=== PATIENT | female | born 1960 | race Caucasian/White ===

== ENCOUNTER 2022-01-02 20:12 | Inpatient (IN) | payer BC, MEDICAID, SELFPAY ==
[2022-01-02] VITALS (11 sets, daily range): BP systolic 157–236; BP diastolic 72–105; PULSE 82–112; RESP 16–18; TEMP 35.7–36.6; O2SAT 100; BMI 29.9
--- NOTE | 2022-01-02 20:26 | EKG12_ITS ---
Test Reason : HTN Blood Pressure : / mmHG Vent. Rate : 092 BPM Atrial Rate : 092 BPM P-R Int : 130 ms QRS Dur : 082 ms QT Int : 390 ms P-R-T Axes : 074 073 063 degrees QTc Int : 482 ms Normal sinus rhythm Normal ECG Confirmed by RAH TOLEDO, ALEXI ([id number]), sound editor JOSE BLAKE ([id number]) on 01/07/2022 11:47:58 AM Referred By: Confirmed By:ALEXI MONREAL MD
--- NOTE | 2022-01-02 20:26 | CT_ITS ---
STUDY: CT BRAIN WITHOUT CONTRAST REASON FOR EXAM: Female, 61 years old. Hypertensive emergency TECHNIQUE: Transaxial CT imaging of the brain was performed without administration of intravenous contrast material. Individualized dose optimization techniques were used for this CT. COMPARISON: None FINDINGS: Normal calvarium. Normal soft tissues. Normal size ventricles and extra-axial spaces for the patient''s age. There are areas of decreased attenuation within the white matter tracts of the supratentorial brain, consistent with microvascular disease changes. Normal basal ganglia and thalami. Normal brainstem. Normal cerebellum. There is no intracranial hemorrhage. There are no findings of an acute ischemic infarction. Normal visualized paranasal sinuses. ASPECTS 10 CT/Brain/Head without Contrast IMPRESSION: There are no acute intracranial findings. Electronically Signed: Stalin Ball MD at 21:35 EST ,
--- NOTE | 2022-01-02 20:27 | EDS_ITS ---
HPI History of Present Illness Chief Complaint: Hypertension Detail of Chief Complaint: Swishing in her ears and high blood pressure Informant: patient Onset/Context/Timing Onset: Today (Today she had new batteries and blood pressure was elevated at 197 /110.) and Yesterday (Patient complained of swishing in ears yesterday. Her blood pressure machine was not functional.) Context: - (Unknown) Timing: - (Unknown) Quality: Elevated blood pressure Location: Cardiovascular Current Severity: Moderate Maximum Severity: Moderate Worsened by: Unknown Relieved by: Nothing Associated Symptoms Associated Symptoms: Vague sense of unwellness and left arm feels different Narrative Narrative: Patient is a 61-year-old woman with no sniffing a past medical history on no medication. She has been taking ibuprofen daily. She denies headache presently. She denies double vision, blurred vision loss vision. She states yesterday she had some trouble with her vision but could not specify what she was experiencing. She is presently complaining of a swishing sensation in her ears. Denies trouble speech or swallowing. She denies motor weakness upper or lower extremities. She denies problems with coordination or balance. She denies chest pain or back pain. Denies abdominal pain. She denies abdominal pain, nausea, vomiting or diarrhea. She denies dysuria, frequency, urgency or hematuria. Prior similar symptoms: No Recent Illness/Hospitalization: No PFSH PFSH Medical History no medical history no medical history Home Medications NK 01/02/22 [History Last Taken Unknown] Allergy/AdvReac Type Severity Reaction Status Date / Time acetaminophen [From Percocet] Allergy Nausea Verified 01/02/22 20:14 oxycodone [From Percocet] Allergy Nausea Verified 01/02/22 20:14 Social History (Updated 01/02/22 @ 20:[address] Marc Carreon MD) household members: none Smoking Status: Current every day smoker tobacco type: cigarettes alcohol intake: current alcohol intake frequency: holidays/special occasions only substance use type: does not use ROS ROS ED Constitutional Constitutional ED: Denies chills, fever(s), subjective, sweats or weight loss Eyes Eyes: Denies blurry vision, change in vision or diplopia ENT ENT ED: Denies ear pain, rhinorrhea or sore throat Cardiovascular Cardiovascular: Denies chest pain, orthopnea, palpitations or paroxysmal nocturnal dyspnea Respiratory/Chest Respiratory/Chest: Denies cough, dyspnea, dyspnea on exertion, orthopnea or paroxysmal nocturnal dyspnea Gastrointestinal Gastrointestinal: Denies abdominal pain, diarrhea, nausea or vomiting Genitourinary Genitourinary ED: Denies dysuria, hematuria or urinary frequency Musculoskeletal Musculoskeletal: Denies arthralgias, back pain, myalgias or neck pain Integumentary Denies abscess or Abrasions Neurologic Neurologic: Reports paresthesias LUE; Denies headache(s) or weakness Psychiatric Psychiatric: Denies anxiety or depression Endocrine Endocrinology: Denies cold intolerance or heat intolerance Hematologic/Lymphatic Hematologic/Lymphatic: Reports systems reviewed and no addt'l complaints, except as documented EXAM Physical Exam Const Vital Signs: 01/02/22 20:14 01/02/22 20:28 01/02/22 20:28 Temperature 96.3 F L Temperature Source Temporal Pulse Rate 112 H 91 Respiratory Rate 18 16 Respiratory Effort Normal Blood Pressure 236/97 H 224/88 H Blood Pressure Mean 143 133 Pulse Ox 100 Oxygen Delivery Method Room Air 01/02/22 21:01 01/02/22 21:12 01/02/22 21:50 Temperature Temperature Source Pulse Rate 82 93 Respiratory Rate 18 18 Respiratory Effort Blood Pressure 193/84 H 189/83 H 157/72 H Blood Pressure Mean 120 118 100 Pulse Ox Oxygen Delivery Method 01/02/22 21:55 Temperature Temperature Source Pulse Rate 89 Respiratory Rate 18 Respiratory Effort Blood Pressure 157/72 H Blood Pressure Mean 100 Pulse Ox Oxygen Delivery Method Positive well nourished and well developed General Appearance ED: well developed and NAD; Negative for cyanotic, diaphoretic or pallor HEENT HEENT Narrative: Head is atraumatic normocephalic. Ears normal. Nares patent. Uvula midline. No deviation of her protrusion. No erythema exudate the posterior pharynx. Eyes PERRL and EOMs intact bilaterally Eyes Narrative: There is no nystagmus. There is no APD. Unable to see fundi. General Eye ED: Negative for pale conjunctiva or scleral icterus Neck no lymphadenopathy, supple and no JVD Chest Wall inspection of chest normal and palpation of chest normal Resp normal respiratory effort and clear to auscultation bilaterally Cardio regular rhythm, S1 normal heart sound, S2 normal heart sound and no murmurs Rate: tachycardic GI normal to inspection, nondistended, normoactive bowel sounds, non-tender, non- distended and no masses; Negative for hepatosplenomegaly Back/Spine no CVA tenderness Extremity normal to inspection General Extremety ED: Negative for edema, tenderness or other findings General Extremity: Negative for edema or other findings Neuro oriented x3, CN's II-XII intact bilaterally and No no sensory deficits noted Neuro Narrative: Ultrasound patient left upper EXTR. DTR symmetric upper lower extremity with no clonus or Babinski sign. Sensorium / Orientation: alert Motor Exam: strength 5/5 throughout Psych mental status grossly normal Skin no rashes or lesions noted, no wounds and skin turgor normal General Skin Exam: Negative for jaundice or pallor MDM MDM MDM Narrative Medical decision making narrative: With patient taking ibuprofen will obtain BMP to assess for renal function and electrolytes. CBC to rule out anemia. EKG to see if there is evidence of heart strain, LVH consistent with undiagnosed untreated hypertension. Since patient can planes of altered sensation left upper extremity has decreased sensation left upper extremity will start patient on Cardene drip and will obtain CT of the head to evaluate for intracranial bleed. Lab Data Attestation: I reviewed the patient's lab results. Lab results narrative: CBC is unremarkable. Basic metabolic panel reveals mild hyponatremia and hyper bow kalemia. BUN and creatinine are normal. UA is negative with no evidence of proteinuria or hematuria. Labs: Laboratory Results - last 24 hr 01/02/22 01/02/22 01/02/22 20:40 20:40 21:21 WBC 9.4 RBC 4.30 Hgb 13.5 Hct 40.1 MCV 93.3 MCH 31.4 MCHC 33.7 RDW Std Deviation 44.0 H RDW Coeff of Grecia 13.0 Plt Count 232 MPV 11.0 Immature Gran % (Auto) 0.400 Neut % (Auto) 57.3 Lymph % (Auto) 32.6 [place] % (Auto) 7.0 Eos % (Auto) 1.9 Baso % (Auto) 0.8 Absolute Neuts (auto) 5.4 Absolute Lymphs (auto) 3.07 Nucleated RBC % 0 Sodium 133 L Potassium 3.0 L Chloride 100 Carbon Dioxide 23.0 Anion Gap 10 BUN 10 Creatinine 0.73 Estim Creat Clear Calc 69.00 Est GFR (MDRD) Af Amer 104 Est GFR (MDRD) Non-Af 86 BUN/Creatinine Ratio 13.8 Glucose 94 Calcium 9.1 Urine Color Straw Urine Clarity Clear Urine pH 6.5 Ur Specific [place] 1.010 Urine Protein Negative Urine Glucose (UA) Normal Urine Ketones Negative Urine Occult Blood Negative Urine Nitrite Negative Urine Bilirubin Negative Urine Urobilinogen Normal Ur Leukocyte Esterase Negative Urine RBC 0 SEEN Urine WBC 0 SEEN Ur Squamous Epith Cells 0 SEEN Urine Bacteria 0 SEEN Urine Mucus 0 SEEN There is no evidence of endorgan dysfunction on laboratory tests. UA is pending. Radiography Diagnostic Testing: Clinical Impression(s) from Imaging Studies Brain CT 01/02/22 20:26 IMPRESSION: There are no acute intracranial findings. Electronically Signed: Stalin Ball MD at 21:35 EST , CT of the head was independently reviewed by me as negative for intracranial bleed or obvious stroke. Awaiting formal read by radiologist, [id number]. The x-ray was interpreted by radiologist and agrees there is no acute intracranial process EKG Initial EKG: Attestation: I personally reviewed and interpreted this EKG as follows: Interpretation: Sinus Rhythm (The EKG is normal. Rate is 92. PA interval is 130 ms. QRS duration 82 ms. QT duration 398 ms. Salol is normal.) Treatment and Re-Evaluation Narrative: Patient's had a reduction of her blood pressure from 2 36-1 89/83 on a Cardene drip. 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
[2022-01-02 20:46] LABS: Absolute Lymphocyte Count 3.07 X10^3/uL (0.83-4.51); Absolute Neutrophil Count 5.4 X10^3/uL (2.0-7.7); Basophil# 0.08 X10^3/uL; Basophil% 0.8 % (0-1); Eosinophil# 0.18 X10^3/uL; Eosinophils% 1.9 % (0-5); Hematocrit 40.1 % (37-47); Hemoglobin 13.5 g/dL (12.0-15.0); Lymphocyte # 3.07 X10^3/ul (0.83-4.51); Lymphocyte % 32.6 % (19-41); Mean Corp Hgb Conc 33.7 g/dL (32-36); Mean Corpuscular Hgb 31.4 pg (27.0-32.0); Mean Corpuscular Volume 93.3 fL (81-99); Monocyte# 0.66 X10^3/uL; NRBC Flagged by Analyzer 0 % (0-5); Neutrophil # 5.39 X10^3/uL (2.7-7.7); Neutrophil % 57.3 % (47-70); Platelet Count 232 K/mm3 (150-450); White Blood Count 9.4 K/mm3 (4.4-11.0)
[2022-01-02 20:59] LABS: Anion Gap 10 (5-15); BUN 10 mg/dL (7-18); BUN/Creat Ratio 13.8 RATIO (10-20); Calcium,Total 9.1 mg/dL (8.5-10.1); Chloride 100 mmol/L (98-107); Creatinine, Serum 0.73 mg/dL (0.55-1.02); EST Glomerular Filtration Rate 86 mL/min (>60); Est Glom Filt Rate - Afr Amer 104 mL/min (>60); Glucose 94 mg/dL (74-106); Sodium Level 133 mmol/L (136-145)
[2022-01-02 21:34] LABS: Bacteria 0 SEEN /hpf (None Seen); Mucous, Urine 0 SEEN /hpf (<or=2+); Red Blood Cells-Urine 0 SEEN /hpf (0-5); Squamous Epithelial Cells - UA 0 SEEN /hpf (5-10); White Blood Cells 0 SEEN /hpf (0-5)
[2022-01-02 21:39] LABS: Color, Urine Straw (Yellow); Glucose, Dipstick Normal (Normal); Ketone-Dipstick Negative (Negative); Leukocyte Esterase-Dipstick Negative /ul (Negative); Nitrite-Dipstick Negative (Negative); Occult Blood-Urine Negative /ul (Negative); Protein-Dipstick Negative (Negative); Urine Bilirubin Dipstick Negative (Negative); Urine Clarity Clear (Clear); Urine Urobilinogen Normal (Normal); Urine pH 6.5 (5.0 - 8.0)
--- NOTE | 2022-01-02 23:03 | HP.PCM.HOS_ITS ---
HPI - General General Date of Admission: 01/02/22 Date of Service: 01/02/22 Chief Complaint: elevated blood pressures HPI Narrative JOSE MANUEL CASTRO, is a 61 F with a significant history of hyperlipidemia; and bilateral breast cancer status post bilateral mastectomy who presents to the emergency department with elevated blood pressure. Patient reported that on a day before presentation she had a swishing sound in both ears. 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 She could not check her blood pressure at that time since the battery of a blood pressure machine had . On the day of presentation patient she had headache and generally felt unwell. She checked her blood pressure and it was 187/110. She drank some water hoping that it would bring her blood pressure down. However her blood pressure remained elevated. Patient had some blurry vision. At the emergency department she transiently had a tingling sensation of her left forearm. She reports that 1 time and with her blood pressure was elevated and remain elevated a few days afterwards. She denies a diagnosis of hypertension. [facility] Medical History Hyperlipidemia Medical History no medical history Home Medications NK 01/02/22 [History Last Taken Unknown] Allergy/AdvReac Type Severity Reaction Status Date / Time acetaminophen [From Percocet] Allergy Nausea Verified 01/02/22 20:14 oxycodone [From Percocet] Allergy Nausea Verified 01/02/22 20:14 Family History Mother Cancer Heart disease Brother Heart disease Other CVA (cerebral vascular accident) Surgical History H/O bilateral mastectomy History of hip replacement Social History (Updated 01/03/22 @ 02:[address] Jose Hong MD) household members: none Smoking Status: Current every day smoker tobacco type: cigarettes alcohol intake: current alcohol intake frequency: 3 or more drinks per day substance use type: does not use ROS ROS Narrative Pertinent positives and pertinent negatives as noted in HPI. All other systems were reviewed and are negative Vital Signs Vital Signs Vital Signs: 01/02/22 20:14 01/02/22 20:28 01/02/22 20:28 Temperature 96.3 F L Temperature Source Temporal Pulse Rate 112 H 91 Respiratory Rate 18 16 Respiratory Effort Normal Blood Pressure 236/97 H 224/88 H Blood Pressure Mean 143 133 Pulse Ox 100 Oxygen Delivery Method Room Air 01/02/22 21:01 01/02/22 21:12 01/02/22 21:50 Temperature Temperature Source Pulse Rate 82 93 Respiratory Rate 18 18 Respiratory Effort Blood Pressure 193/84 H 189/83 H 157/72 H Blood Pressure Mean 120 118 100 Pulse Ox Oxygen Delivery Method 01/02/22 21:55 Temperature Temperature Source Pulse Rate 89 Respiratory Rate 18 Respiratory Effort Blood Pressure 157/72 H Blood Pressure Mean 100 Pulse Ox Oxygen Delivery Method Weight Weight: 79.379 kg Body Mass Index (BMI) 30.0 Physical Exam Narrative Physical exam: General: Well-nourished, well-developed. Head: Normocephalic, atraumatic, no tenderness Eyes: Vision is grossly intact. EOMI ENT, no trauma, moist mucous membranes, no rhinorrhea Neck: Nontender, full range of motion, no spinal tenderness, deformities, step- off CVS: Regular rate and rhythm. S1-S2 present. No murmur, gallop or rub. Respiratory : clear to auscultation bilaterally, chest wall nontender, no wheezing Abdomen: Soft, nontender, nondistended, normal bowel sounds, no masses : Deferred Back: Nontender, no CVA tenderness, no midline spinal tenderness, deformities, step-offs Extremities: Nontender full range of motion, no trauma Skin: Normal color, no trauma, abrasions Neuro: Alert, oriented, cranial nerves II through XII grossly intact. Psychiatry: Normal mood. Normal affect. Not depressed. Not anxious. Results Lab / Micro Data Result Diagrams: 01/02/22 20:40 01/02/22 20:40 Labs: Laboratory Results - last 24 hr 01/02/22 20:40: WBC 9.4, RBC 4.30, Hgb 13.5, Hct 40.1, MCV 93.3, MCH 31.4, MCHC 33.7, RDW Std Deviation 44.0 H, RDW Coeff of Grecia 13.0, Plt Count 232, MPV 11.0, Immature Gran % (Auto) 0.400, Neut % (Auto) 57.3, Lymph % (Auto) 32.6, [place] % ( Auto) 7.0, Eos % (Auto) 1.9, Baso % (Auto) 0.8, Absolute Neuts (auto) 5.4, Absolute Lymphs (auto) 3.07, Nucleated RBC % 0 01/02/22 20:40: Sodium 133 L, Potassium 3.0 L, Chloride 100, Carbon Dioxide 23.0, Anion Gap 10, BUN 10, Creatinine 0.73, Estim Creat Clear Calc 69.00, Est GFR (MDRD) Af Amer 104, Est GFR (MDRD) Non-Af 86, BUN/Creatinine Ratio 13.8, Glucose 94, Calcium 9.1 01/02/22 21:21: Urine Color Straw, Urine Clarity Clear, Urine pH 6.5, Ur Specific [place] 1.010, Urine Protein Negative, Urine Glucose (UA) Normal, Urine Ketones Negative, Urine Occult Blood Negative, Urine Nitrite Negative, Urine Bilirubin Negative, Urine Urobilinogen Normal, Ur Leukocyte Esterase Negative, Urine RBC 0 SEEN, Urine WBC 0 SEEN, Ur Squamous Epith Cells 0 SEEN, Urine Bacteria 0 SEEN, Urine Mucus 0 SEEN Radiology Impression Brain CT 01/02/22 20:26 IMPRESSION: There are no acute intracranial findings. Electronically Signed: Stalin Ball MD at 21:35 EST Reading Location ID and State: [facility] / [place] , Service support , Assessment & Plan Assessment/Plan (1) Hypertensive emergency: (2) Arm paresthesia, left: (3) Alcoholism: (4) Tobacco abuse: PLAN: Plan Hypertensive emergency Patient with headache and paresthesia. EKG was reviewed and independently interpreted. Sinus rhythm with no LVH. Urinalysis with no proteinuria. Cardene drip started at the emergency department and continued. Parameters for blood pressures placed. Admit the patient to intensive care unit. Showroom Sales Assistant consult. Paresthesia Likely secondary to hypertension. CT brain was visualized and independently interpreted. No bleed seen. MRI of brain/MRA head and neck ordered. Echocardiogram ordered. Tobacco abuse Counseled Alcoholism Counseled DVT prophylaxis Subcutaneous Lovenox ordered. Charges/Coding Visit Charges Inpatient E&M: 34234 Init Hosp L3
[2022-01-03] VITALS (23 sets, daily range): BP systolic 118–194; BP diastolic 57–93; PULSE 62–98; RESP 16–23; TEMP 36.6–36.7; O2SAT 92–98; BMI 29.9
[2022-01-03] MEDS: Potassium Chloride Oral Tablet 20 MEQ 40 MEQ PO (03:30)
[2022-01-03 06:06] LABS: Absolute Lymphocyte Count 2.35 X10^3/uL (0.83-4.51); Absolute Neutrophil Count 4.5 X10^3/uL (2.0-7.7); Basophil# 0.06 X10^3/uL; Basophil% 0.8 % (0-1); Eosinophil# 0.19 X10^3/uL; Eosinophils% 2.4 % (0-5); Hematocrit 42.5 % (37-47); Hemoglobin 14.4 g/dL (12.0-15.0); Lymphocyte # 2.35 X10^3/ul (0.83-4.51); Lymphocyte % 30.1 % (19-41); Mean Corp Hgb Conc 33.9 g/dL (32-36); Mean Corpuscular Hgb 31.6 pg (27.0-32.0); Mean Corpuscular Volume 93.2 fL (81-99); Mean Platelet Vol. 11.2 fl (6.2-12.0); Monocyte# 0.67 X10^3/uL; Monocyte% 8.6 % (0-10); NRBC Flagged by Analyzer 0 % (0-5); Neutrophil # 4.51 X10^3/uL (2.7-7.7); Neutrophil % 57.6 % (47-70); Platelet Count 258 K/mm3 (150-450); RBC Distribution Width CV 13.2 % (11.6-14.6); RBC Distribution Width SD 45.2 fl (35.1-43.9); Red Blood Count 4.56 M/mm3 (4.2-5.4); White Blood Count 7.8 K/mm3 (4.4-11.0)
[2022-01-03 06:35] LABS: Anion Gap 5 (5-15); BUN 9 mg/dL (7-18); BUN/Creat Ratio 13.3 RATIO (10-20); Calcium,Total 9.5 mg/dL (8.5-10.1); Chloride 107 mmol/L (98-107); Cholesterol 264 mg/dL (200); Creatinine, Serum 0.68 mg/dL (0.55-1.02); EST Glomerular Filtration Rate 94 mL/min (>60); Est Glom Filt Rate - Afr Amer 113 mL/min (>60); Estimated Creatinine Clearance 74.07 ml/min; Glucose 102 mg/dL (74-106); High Density Lipoprotein 67 mg/dL; Potassium 4.2 mmol/L (3.5-5.1); Sodium Level 139 mmol/L (136-145); Triglycerides 145 mg/dL; Very Low Density Lipoprotein 29 mg/dL (5-40)
--- NOTE | 2022-01-03 08:02 | EX.PCM.CONCC ---
Assessment & Plan Assessment/Plan (1) Hypertensive emergency: PLAN: Plan RECOMMENDATIONS: 1. Initiate beta-manuel 2. Okay to discontinue NIH assessments 3. Cancel MRI 4. Close outpatient follow-up with PCP 5. Consider outpatient complete PFT for evaluation of COPD 6. Okay to discharge from a critical care perspective. We will sign off IMPRESSIONS: 1. Hypertensive emergency Patient with blood pressures over 200 with concomitant neurologic findings. These findings were bilateral and resolved with normalization of blood pressure making acute CVA unlikely. Okay to discontinue NIH assessments from my perspective. Given concerns about earrings, MRI could be detrimental. We will initiate patient on a beta-manuel given history of headaches. Patient may benefit from addition of CARA inhibitor as an outpatient if LVH is noted on echocardiogram. Additional work-up is likely not necessary as an inpatient, but defer to hospitalist 2. Elevated cholesterol/nicotine abuse/overweight/poor insight/ingrown earrings/history of breast cancer Complicates care, management, recovery and prognosis. Did discuss with the patient about smoking cessation. Patient would likely benefit from an outpatient pulmonary function test for evaluation of COPD. Patient likely would benefit from a statin also given elevated cholesterol. HPI Consult Data Date of Consult: 01/03/22 HPI Narrative Reason for Consultation: Hypertensive emergency HPI Narrative: JOSE MANUEL CASTRO is a 61 F, with past medical history listed below, who presents to [facility] on 01/02/2022 secondary to concerns for high blood pressure and the sensation of swishing in her ears. Patient reportedly does follow with a primary care physician, but is not currently on any medications. Patient had some concerns of elevated blood pressure in the past, but was not started on any medication. Patient stated that she started to feel swishing in her ears and presented to the ER for further evaluation. Patient also reported that she started to have numbness and tingling of bilateral hands. Patient denied any concomitant chest pain, abdominal pain, nausea or vomiting. No syncopal event was noted. In the ER, patient was afebrile, but had blood pressure of 236/97. Patient was saturating well on room air. Patient was noted to have relatively normal chemistries except for a potassium of 3 and a sodium of 133. UA was unremarkable. CBC was within normal limits. CT of the head showed no acute intracranial findings and EKG confirmed sinus rhythm. Initial NIH was 1. Patient was not given tPA. Patient was placed on a nicardipine drip and admitted to the intensive care unit. Since being in the intensive care unit, patient was able to be weaned off the nicardipine quickly. Patient reportedly had never received any labetalol or hydralazine prior to the drip. Patient states her numbness and tingling has completely gone away. Patient is not reporting any swishing in her ears. Blood pressures have remained in the 150s. Patient does have a long smoking history, starting at age 12. Patient has never had a pulmonary function test to evaluate for COPD, but does have a cough productive of clear sputum on a daily basis. 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 Patient states that she typically runs in the 140s but my PCP seems okay with this. Patient is not reporting any illicit drugs. Patient has not had any recent trauma. Patient is not taking any [id number] medications outside of ibuprofen. Patient has not had previous symptoms like this. Nursing has reported that the patient has earrings that have grown over and are difficult to remove prior to MRI. Review of systems otherwise negative from a constitutional, HEENT, respiratory, cardiovascular, GI, genitourinary, musculoskeletal, skin, neurologic, psychiatric and hematologic system unless stated above. [facility] Medical History Hyperlipidemia Medical History no medical history Home Medications NK 01/02/22 [History Last Taken Unknown] Allergy/AdvReac Type Severity Reaction Status Date / Time acetaminophen [From Percocet] Allergy Nausea Verified 01/02/22 20:14 oxycodone [From Percocet] Allergy Nausea Verified 01/02/22 20:14 Family History Mother Cancer Heart disease Brother Heart disease Other CVA (cerebral vascular accident) Surgical History H/O bilateral mastectomy History of hip replacement Social History household members: none Smoking Status: Current every day smoker tobacco type: cigarettes alcohol intake: current alcohol intake frequency: 3 or more drinks per day substance use type: does not use ROS ROS Narrative See HPI Physical Exam Const alert, oriented x3 and no apparent distress Constitutional Narrative: Obese. General Appearance: cooperative and well developed HEENT normocephalic, head/scalp atraumatic and moist oral mucous membranes Eyes PERRL and EOMs intact bilaterally Neck full ROM, no lymphadenopathy and supple Chest Chest Narrative: Bilateral mastectomy scars Resp normal respiratory effort and no use of accessory muscles Effort and Inspection: able to speak in complete sentences Auscultation: clear to auscultation bilaterally; Negative for rales, rhonchi or wheezes Percussion: Negative for dullness Cardio regular rate, regular rhythm, S1 normal heart sound, S2 normal heart sound, no murmurs, no rub and no gallops GI normal to inspection, nondistended, normoactive bowel sounds no CVA tenderness Extremity no clubbing, cyanosis or edema Skin no rashes or lesions noted Neuro oriented x3, CN's II-XII intact bilaterally, moves all extremities and no focal motor deficits Neuro Narrative: Normal, symmetric fine touch sensation bilateral hands Psych cooperative and affect normal Lab / Micro Data Attestation: I reviewed the patient's lab results. Result Diagrams: 01/03/22 05:50 01/03/22 05:50 Labs: Laboratory Results - last 24 hr 01/02/22 20:40: WBC 9.4, RBC 4.30, Hgb 13.5, Hct 40.1, MCV 93.3, MCH 31.4, MCHC 33.7, RDW Std Deviation 44.0 H, RDW Coeff of Grecia 13.0, Plt Count 232, MPV 11.0, Immature Gran % (Auto) 0.400, Neut % (Auto) 57.3, Lymph % (Auto) 32.6, Henry % (Auto) 7.0, Eos % (Auto) 1.9, Baso % (Auto) 0.8, Absolute Neuts (auto) 5.4, Absolute Lymphs (auto) 3.07, Nucleated RBC % 0 01/02/22 20:40: Sodium 133 L, Potassium 3.0 L, Chloride 100, Carbon Dioxide 23.0, Anion Gap 10, BUN 10, Creatinine 0.73, Estim Creat Clear Calc 69.00, Est GFR (MDRD) Af Amer 104, Est GFR (MDRD) Non-Af 86, BUN/Creatinine Ratio 13.8, Glucose 94, Calcium 9.1 01/02/22 21:21: Urine Color Straw, Urine Clarity Clear, Urine pH 6.5, Ur Specific [place] 1.010, Urine Protein Negative, Urine Glucose (UA) Normal, Urine Ketones Negative, Urine Occult Blood Negative, Urine Nitrite Negative, Urine Bilirubin Negative, Urine Urobilinogen Normal, Ur Leukocyte Esterase Negative, Urine RBC 0 SEEN, Urine WBC 0 SEEN, Ur Squamous Epith Cells 0 SEEN, Urine Bacteria 0 SEEN, Urine Mucus 0 SEEN 01/03/22 05:50: WBC 7.8, RBC 4.56, Hgb 14.4, Hct 42.5, MCV 93.2, MCH 31.6, MCHC 33.9, RDW Std Deviation 45.2 H, RDW Coeff of Grecia 13.2, Plt Count 258, MPV 11.2, Immature Gran % (Auto) 0.500, Neut % (Auto) 57.6, Lymph % (Auto) 30.1, Henry % (Auto) 8.6, Eos % (Auto) 2.4, Baso % (Auto) 0.8, Absolute Neuts (auto) 4.5, Absolute Lymphs (auto) 2.35, Nucleated RBC % 0 01/03/22 05:50: Sodium 139, Potassium 4.2, Chloride 107, Carbon Dioxide 27.0, Anion Gap 5, BUN 9, Creatinine 0.68, Estim Creat Clear Calc 74.07, Est GFR (MDRD) Af Amer 113, Est GFR (MDRD) Non-Af 94, BUN/Creatinine Ratio 13.3, Glucose 102, Calcium 9.5, Triglycerides 145, Cholesterol 264 H, LDL Cholesterol 168 H, VLDL Cholesterol 29, HDL Cholesterol [address] 01/02/22 20:26 IMPRESSION: There are no acute intracranial findings. Electronically Signed: Stalin Ball MD at 21:35 EST , Charges/Coding Visit Charges Inpatient E&M: 24262 Init Hosp L2
[2022-01-03] MEDS: Metoprolol Tartrate 50 MG Tablet PO (09:48)
[2022-01-03] MEDS: Acetaminophen 325 MG Tablet 650 MG PO (10:01)
--- NOTE | 2022-01-03 10:17 | DS.PCM_ITS ---
Providers Date of Admission: 01/02/22 Date of Discharge: 01/03/22 Primary Care Physician: Dr. Joyce Moreno, DO Consultations 01/02/22 23:27 Consult: Social Media Executive / Pulmonary Medicine Routine Consulting Provider: Osvaldo Iglesias Reason for Consult: Hypertensive emergency EMERGENT Consult: No MD Notified: Yes Date Notified: 01/02/22 Time Notified: 23:23 Method of Notification: Text Reason For Visit: HYPERTENSIVE EMERGENCY Diagnosis Discharge Diagnosis (1) Hypertensive emergency: Status: Acute Code(s): I16.1 - Hypertensive emergency Medications at Discharge Home Medications amlodipine 10 mg tablet 10 mg PO DAILY #30 tabs 01/03/22 atorvastatin 20 mg tablet 20 mg PO QHS #30 tabs 01/03/22 metoprolol tartrate 50 mg tablet 50 mg PO BID #60 tabs 01/03/22 Hospital Course Operations None Procedures None Summary of Care Provided Minutes Spent on Discharge: 47 Hospital Course: Patient is a 62-year-old female with a past medical history as outlined including hyperlipidemia and breast cancer s/p bilateral mastectomy who was admitted through the ED on 01/02/2022 with a complaint of elevated blood pressure. She said she had had swishing in both ears and felt her blood pr essure was elevated. She also had associated headache and checked her blood pressure and was 187/110. She had assisted blurring of her vision and also had tingling in her left upper extremity. On arrival in the ED, her blood pressure was 236/97. She was admitted and managed for hypertensive emergency and started on nicardipine drip. She was weaned off of nicardipine drip. 2D echo was ordered. Social Media Executive was also consulted. She was placed on metoprolol after his nicardipine drip was titrated off. Patient was counseled that would be advisable for her to remain in the hospital for at least 1 more day to make sure that her blood pressure remained stable on her oral medications. She however insisted on leaving and actually wanted to sign out AGAINST MEDICAL ADVICE. Patient was therefore discharged home on metoprolol 50 mg twice daily as well as amlodipine 10 mg daily. 2D echo was ordered but this could not be done before patient left. She is follow-up with her primary care doctor for 2D echo to be ordered on outpatient basis. She was also counseled to keep a blood pressure log to present to her PCP for adjustment of her BP meds as needed and is to follow-up with her primary care doctor within 1 week. Patient seen and examined prior to discharge. She had no active complaints and adamantly refused to stay 1 more day. Review of systems otherwise negative. Labs and vitals reviewed. Home medication reviewed and reconciled. Of note her cholesterol was also elevated so she was started on p.o. atorvastatin 20 mg daily. Physical Exam Const alert, oriented x3 and no apparent distress General Appearance: cooperative, comfortable and well kempt Orientation / Consciousness: awake Exam Limitations: no limitations HEENT normocephalic, head/scalp atraumatic, hearing grossly normal bilaterally and moist oral mucous membranes Mouth: oral and palatal mucosa normal Eyes PERRL and EOMs intact bilaterally Neck no lymphadenopathy and supple Resp normal respiratory effort, no retractions, no use of accessory muscles and clear to auscultation bilaterally Cardio regular rate, regular rhythm, S1 normal heart sound, S2 normal heart sound and no murmurs GI normal to inspection, nondistended, normoactive bowel sounds, soft to palpation, non-tender and non-distended Extremity normal to inspection, full ROM and no clubbing, cyanosis or edema General Extremity: edema Skin no rashes or lesions noted Neuro oriented x3, CN's II-XII intact bilaterally, moves all extremities and no focal motor deficits Sensorium / Orientation: awake and alert Motor Exam: strength 5/5 throughout Psych affect normal Weight / BMI Weight Weight: 174 lb 2.643 oz Body Mass Index (BMI) 29.9 ABG / Lab / Microbiology Data Result Diagrams: 01/03/22 05:50 01/03/22 05:50 Laboratory: Laboratory Results - last 24 hr 01/02/22 20:40: WBC 9.4, RBC 4.30, Hgb 13.5, Hct 40.1, MCV 93.3, MCH 31.4, MCHC 33.7, RDW Std Deviation 44.0 H, RDW Coeff of [place] 13.0, Plt Count 232, MPV 11.0, Immature Gran % (Auto) 0.400, Neut % (Auto) 57.3, Lymph % (Auto) 32.6, Wilkes % (Auto) 7.0, Eos % (Auto) 1.9, Baso % (Auto) 0.8, Absolute Neuts (auto) 5.4, Absolute Lymphs (auto) 3.07, Nucleated RBC % 0 01/02/22 20:40: Sodium 133 L, Potassium 3.0 L, Chloride 100, Carbon Dioxide 23.0, Anion Gap 10, BUN 10, Creatinine 0.73, Estim Creat Clear Calc 69.00, Est GFR (MDRD) Af Amer 104, Est GFR (MDRD) Non-Af 86, BUN/Creatinine Ratio 13.8, Glucose 94, Calcium 9.1 01/02/22 21:21: Urine Color Straw, Urine Clarity Clear, Urine pH 6.5, Ur Specific [place] 1.010, Urine Protein Negative, Urine Glucose (UA) Normal, Urine Ketones Negative, Urine Occult Blood Negative, Urine Nitrite Negative, Urine Bilirubin Negative, Urine Urobilinogen Normal, Ur Leukocyte Esterase Negative, Urine RBC 0 SEEN, Urine WBC 0 SEEN, Ur Squamous Epith Cells 0 SEEN, Urine Bacte babita 0 SEEN, Urine Mucus 0 SEEN 01/03/22 05:50: WBC 7.8, RBC 4.56, Hgb 14.4, Hct 42.5, MCV 93.2, MCH 31.6, MCHC 33.9, RDW Std Deviation 45.2 H, RDW Coeff of [place] 13.2, Plt Count 258, MPV 11.2, Immature Gran % (Auto) 0.500, Neut % (Auto) 57.6, Lymph % (Auto) 30.1, Wilkes % (Auto) 8.6, Eos % (Auto) 2.4, Baso % (Auto) 0.8, Absolute Neuts (auto) 4.5, Absolute Lymphs (auto) 2.35, Nucleated RBC % 0 01/03/22 05:50: Sodium 139, Potassium 4.2, Chloride 107, Carbon Dioxide 27.0, Anion Gap 5, BUN 9, Creatinine 0.68, Estim Creat Clear Calc 74.07, Est GFR (MDRD) Af Amer 113, Est GFR (MDRD) Non-Af 94, BUN/Creatinine Ratio 13.3, Glucose 102, Calcium 9.5, Triglycerides 145, Cholesterol 264 H, LDL Cholesterol 168 H, VLDL Cholesterol 29, HDL Cholesterol 67 Radiography Diagnostic Testing: Radiology Impression Brain CT 01/02/22 20:26 IMPRESSION: There are no acute intracranial findings. Electronically Signed: Stalin Ball MD at 21:35 EST Reading Location ID and State: [facility] [place] / [place] , Service support , D/C Instructions Discharge Diet: Low fat / Low cholesterol Weight Bearing Status: Weight bearing as tolerated Call your doctor if you observe: Fever of 101 or Higher, Shortness of breath, Dizziness, Swelling in the ankles, Chest pain and Increased palpitations (irregular heartbeat) Meaningful Use Info Meaningful Use Diagnoses (Choose all that apply): None applicable Discharge Plan Admission Admit Date/Time: 01/02/22 22:46 Primary Reason for Your Visit: hypertensive emergency Attending Provider: Alysia Houston Primary Care Provider: Joyce Moreno Consulting Providers: Osvaldo Iglesias ; Jose Hong Instructions Patient Instructions: ED High Blood Pressure Hypertension Additional Instructions / Restrictions: counseled to keep a BP log to present to PCP upon review within 1-2 weeks. To be compliant with meds. To have echo ordered on outpatient basis by PCP as it couldnt be done before discharge Discharge Orders/Prescriptions Prescriptions: New metoprolol tartrate 50 mg Tablet 50 mg PO BID Qty: 60 1RF atorvastatin 20 mg tablet 20 mg PO QHS Qty: 30 1RF amlodipine 10 mg tablet 10 mg PO DAILY Qty: 30 1RF Referrals / Follow Up: Joyce Moreno DO [Primary Care Provider] - Within 2 Weeks Disposition Disposition (needs filled in before D/C Order can be placed): Home, Self Care Charges/Coding Visit Charges Inpatient E&M: [id number] Disch Hosp
--- NOTE | 2022-01-03 10:17 | DCINST_ITS ---
Discharge Instructions Diet Discharge Diet: Low fat / Low cholesterol Activity Discharge Activity: Return to Normal Activity Weight Bearing Status: Weight bearing as tolerated Dressing / Incision Call your doctor if you observe: Fever of 101 or Higher, Shortness of breath, Dizziness, Swelling in the ankles, Chest pain and Increased palpitations (irregular heartbeat) Follow Up Care Test Results: Test results from this visit will be discussed in further detail at your follow- up appointment, if applicable. Discharge Plan Admission Admit Date/Time: 01/02/22 22:46 Primary Reason for Your Visit: hypertensive emergency Attending Provider: Alysia Houston Primary Care Provider: Joyce Moreno Consulting Providers: Osvaldo Iglesias ; Jose Hong Instructions Patient Instructions: ED High Blood Pressure Hypertension Additional Instructions / Restrictions: counseled to keep a BP log to present to PCP upon review within 1-2 weeks. To be compliant with meds. To have echo ordered on outpatient basis by PCP as it couldnt be done before discharge Discharge Orders/Prescriptions Prescriptions: New metoprolol tartrate 50 mg Tablet 50 mg PO BID Qty: 60 1RF atorvastatin 20 mg tablet 20 mg PO QHS Qty: 30 1RF amlodipine 10 mg tablet 10 mg PO DAILY Qty: 30 1RF Referrals / Follow Up: Joyce Moreno DO [Primary Care Provider] - Within 2 Weeks Disposition Disposition (needs filled in before D/C Order can be placed): Home, Self Care
== END 2022-01-03 12:20 | disposition home or self-care (01) | DRG 305 ==
LOC: ED 20:52 → ICU 23:27
PROVIDERS: Admitting Provider Hospitalist; Emergency Provider Emergency Medicine; PCP Internal Medicine; Visit Provider Student in an Organized Health Care Education/Training Program
DX: I16.1 Hypertensive emergency (principal); E66.3 Overweight; F10.20 Alcohol dependence, uncomplicated; E87.6 Hypokalemia; E78.00 Pure hypercholesterolemia, unspecified; F17.210 Nicotine dependence, cigarettes, uncomplicated; I10 Essential (primary) hypertension; Z82.3 Family history of stroke; Z85.3 Personal history of malignant neoplasm of breast; Y90.9 Presence of alcohol in blood, level not specified; Z68.30 Body mass index [BMI] 30.0-30.9, adult
CPT/HCPCS: 70450; 80048; 80061; 81001; 85025; 93005; 99285; J7050